=== PATIENT | female | born 1985 | race Caucasian/White ===

== ENCOUNTER 2017-09-27 12:23 | Day surgery (SDC) | payer BC ==
[2017-09-27] MEDS ORDERED: fentaNYL 250 MCG/5 ML SDV ONE (12:57)
[2017-09-27] MEDS ORDERED: Propofol 200 MG/20 ML SDV ONE (12:57)
[2017-09-27] MEDS ORDERED: Midazolam 1 MG/ML 2 ML SDV ONE (12:57)
[2017-09-27] MEDS ORDERED: Dexamethasone 4 MG/ML 5 ML MDV ONE (13:07)
[2017-09-27] MEDS ORDERED: Ondansetron 4 MG/2 ML SDV ONE (13:07)
[2017-09-27] MEDS ORDERED: Succinylcholine 200 MG/10 ML MDV ONE (13:13)
[2017-09-27] MEDS ORDERED: Rocuronium 10 MG/ML 10 ML Syringe ONE (13:13)
--- NOTE | 2017-09-27 13:50 | PCM.PREANE ---
Preanesthetic Assessment - Anesthesia/Transfusion/Family Hx Anesthesia History: Prior Anesthesia Without Reaction Family History of Anesthesia Reaction: No Transfusion History: No Prior Transfusion(s) Intubation History: Unknown - Review of Systems General: No Symptoms Pulmonary: No Symptoms Cardiovascular: No Symptoms Gastrointestinal: No Symptoms Neurological: No Symptoms Other: Reports: None - Physical Assessment Height: 1.69 m Weight: 131.088 kg ASA Class: 3 Mental Status: Alert & Oriented x3 Airway Class: Mallampati = 3 Dentition: Reports: Normal Dentition (small chip front upper tooth) Thyro-Mental Finger Breadths: 2 Mouth Opening Finger Breadths: 3 ROM/Head Extension: Full Lungs: Clear to Auscultation, Normal Respiratory Effort Cardiovascular: Regular Rate, Regular Rhythm - Allergies Allergies/Adverse Reactions: Allergies Allergy/AdvReac Type Severity Reaction Status Date / Time clindamycin Allergy Rash Verified 09/27/17 12:22 - Blood Blood Available: No - Anesthesia Plan Pre-Op Medication Ordered: None - Acknowledgements Anesthesia Type Planned: General Anesthesia Pt an Appropriate Candidate for the Planned Anesthesia: Yes Alternatives and Risks of Anesthesia Discussed w Pt/Guardian: Yes Pt/Guardian Understands and Agrees with Anesthesia Plan: Yes PreAnesthesia Questionnaire - Past Health History Medical/Surgical History: Denies Medical/Surgical History HEENT History: Reports: Other (See Below) Other HEENT History: wears glasses Cardiovascular History: Reports: Hypertension Respiratory History: Reports: Other (See Below) Other Respiratory History: possible sleep apnea, sleep study scheduled for October Gastrointestinal History: Reports: GERD Genitourinary History: Reports: None 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: Reports: Polycystic Ovaries, Musculoskeletal History: Reports: None Neurological History: Reports: None Psychiatric History: Reports: None Endocrine/Metabolic History: Reports: Obesity/BMI 30+ (BMI 45.9) Hematologic History: Reports: None Immunologic History: Reports: None Oncologic (Cancer) History: Reports: None Dermatologic History: Reports: Other (See Below) Other Dermatologic History: cellulitis, open wound to left thigh-MRSA - Past Surgical History Head Surgeries/Procedures: Reports: None GI Surgical History: Reports: Cholecystectomy, Hernia, Abdominal Female Surgical History: Reports: Section Dermatological Surgical History: Reports: Other (See Below) - SUBSTANCE USE Smoking Status *Q: Never Smoker Recreational Drug Use History: No - HOME MEDS Home Medications: Home Meds Citalopram [Citalopram HBr] 20 mg PO DAILY 09/27/17 [History] Hydrocodone/Acetaminophen [Hydrocodon-Acetaminophn 10-325] 1 tab PO ASDIRECTED PRN 09/27/17 [History] Potassium Chloride 20 meq PO DAILY 09/27/17 [History] Sulfamethoxazole/Trimethoprim [Sulfamethoxazole-Tmp Ds Tablet] 1 tab PO DAILY [History] Triamterene/Hydrochlorothiazid [Triamterene-HCTZ 37.5-25 MG] 1 tab PO DAILY 09/09 [History] - CURRENT (IN HOUSE) MEDS Current Meds: Current Medications Discontinued Medications Dexamethasone (Dexamethasone) Confirm Administered Dose 20 mg .ROUTE .STK-MED ONE Stop: 09/27/17 13:08 Fentanyl (Sublimaze) Confirm Administered Dose 250 mcg .ROUTE .STK-MED ONE Stop: 09/27/17 12:58 Lidocaine HCl (Xylocaine-Mpf 1%) Confirm Administered Dose 5 mls @ as directed .ROUTE .STK-MED ONE Stop: 09/27/17 13:08 Midazolam HCl (Versed 1 Mg/Ml) Confirm Administered Dose 2 mg .ROUTE .STK-MED ONE Stop: 09/27/17 12:58 Ondansetron HCl (Zofran) Confirm Administered Dose 4 mg .ROUTE .STK-MED ONE Stop: 09/27/17 13:08 Propofol (Diprivan 20 Ml) Confirm Administered Dose 200 mg .ROUTE .STK-MED ONE Stop: 09/27/17 12:58 Rocuronium [place] (Zemuron) Confirm Administered Dose 100 mg .ROUTE .STK-MED ONE Stop: 09/27/17 13:14 Succinylcholine Chloride (Quelicin) Confirm Administered Dose 200 mg .ROUTE .STK -MED ONE Stop: 09/27/17 13:14
[2017-09-27] MEDS ORDERED: ceFAZolin 1 GM Vial ONE (13:52)
[2017-09-27] MEDS ORDERED: Bupivacaine 0.5% 10 ML SDV ONE (13:53)
[2017-09-27] MEDS ORDERED: Lactated Ringers 1,000 ML IV SCH (14:00)
[2017-09-27] MEDS: fentaNYL 100 MCG/2 ML SDV IVPUSH PRN ×3 (15:18→15:28)
--- NOTE | 2017-09-27 15:29 | PCM.OPNOTE ---
- General Post-Op/Procedure Note Date of Surgery/Procedure: 09/27/17 Operative Procedure(s): Incision and drainage left anterior thigh abscess Findings: 4.5 deep x 4 cm across x 3 cm wide abscess in subcutaneous fat of anterior left thigh Pre Op Diagnosis: Left thigh abscess Post-Op Diagnosis: same Anesthesia Technique: General LMA Primary Surgeon: Kaitlin Samano Condition: Good
--- NOTE | 2017-09-27 15:40 | PCM.POSTAN ---
POST ANESTHESIA ASSESSMENT - MENTAL STATUS Mental Status: Alert, Oriented - RESPIRATORY Respiratory Status: Respiratory Rate WNL, Airway Patent, O2 Saturation Stable - CARDIOVASCULAR CV Status: Pulse Rate WNL, Blood Pressure Stable - GASTROINTESTINAL GI Status: No Symptoms - PAIN Pain Score: 4 - POST OP HYDRATION Hydration Status: Adequate & Stable
[2017-09-27] MEDS ORDERED: Acetaminophen/HYDROcodone 325-5 MG Tab PO PRN (16:19)
--- NOTE | 2017-09-27 16:19 | PCM48HPAN ---
Post Anesthesia Note - EVALUATION WITHIN 48HRS OF ANESTHETIC Vital Signs in Normal Range: Yes Patient Participated in Evaluation: Yes Respiratory Function Stable: Yes Airway Patent: Yes Cardiovascular Function Stable: Yes Hydration Status Stable: Yes Pain Control Satisfactory: Yes (Patient is having some pain but RN is getting a pill after she eats) Nausea and Vomiting Control Satisfactory: Yes Mental Status Recovered: Yes Resp Rate: 15
--- NOTE | 2017-09-27 17:41 | OR ---
SURGEON: SONALI PURCELL MD DATE OF PROCEDURE: 09/27/2017 PREOPERATIVE DIAGNOSIS: Left thigh abscess. POSTOPERATIVE DIAGNOSIS: Left thigh abscess. PROCEDURE PERFORMED: Incision and drainage of left thigh abscess. ANESTHESIA: General LMA. FLUIDS: See anesthesia record. ESTIMATED BLOOD LOSS: 10 mL. FINDINGS: 4.5 x 4 x 3 cm abscess in the subcutaneous fat of the anterior left thigh. COMPLICATIONS: None. INDICATIONS: The patient is a 32-year-old female, who presented to her primary care provider's office with a left anterior thigh abscess earlier this week. It was incised and drained at bedside. The cultures came back as MRSA. She came back in for wound check yesterday and was found to still be erythematous and actively draining purulence. The patient was seen by me in clinic today and had an ultrasound performed. The ultrasound showed an unopened cavity underneath the original incision and drainage site. The patient and I discussed the need for operative incision, drainage, and excisional debridement. I explained the procedure, expected perioperative course, and risks including bleeding, reinfection, or damage to surrounding structures. She verbalized understanding and wishes to proceed. PROCEDURE IN DETAIL: The patient was brought to the OR and placed on the OR table in supine position. A time-out was completed verifying the patient's name, age, date of , allergies, and procedure to be performed. General LMA anesthesia was induced. The left upper leg was prepped and draped in usual standard fashion. I inspected the previous wound. The original wound measured 2 x 1 cm in size. There was an area of edematous thickened tissue measuring approximately 4 cm around this site. I anesthetized the area with 0.5% Marcaine plain. An elliptical incision was made over the over the reddened area to include the previous opening, this measured 4 x 1 cm in size. I used a 15 blade to remove this from the underlying subcutaneous fat. Once I had unroofed the area, I explored it with palpation. I was able to break into an underlying cavity under the original wound. This was filled with purulent appearing material. I bluntly debrided this with my finger and irrigated out the cavity. I then measured the wound. It was 4.5 cm deep, 4 cm across, and 3 cm wide. Bleeding was controlled with electrocautery. The wound was then packed with a moistened 4 x 4 dressing and covered with dry 4 x 4 dressings, and ABD. This was secured in place using a micropore tape. Fluid from the wound was sent for anaerobic and aerobic cultures as well as Gram stain. The patient tolerated the procedure well and was extubated and taken to the PACU in stable condition. TITA MARSHALL /[id number]
[2017-09-27 17:48] VITALS: BP 123/65
== END 2017-09-27 17:30 | disposition home or self-care (01) ==
LOC: MW.SDS 12:23
PROVIDERS: ATTEND Surgery
DX: L02.416 Cutaneous abscess of left lower limb (principal); K21.9 Gastro-esophageal reflux disease without esophagitis; E66.9 Obesity, unspecified; Z79.2 Long term (current) use of antibiotics; Z88.1 Allergy status to other antibiotic agents
CPT/HCPCS: 10060; 81025; 87070; 87075; 87077; 87186; 87205; A9270; J0330; J0690; J1100; J2250; J2405; J3010; J3370; J7050; J7120; J2704

== ENCOUNTER 2020-04-21 08:07 | Emergency (ER) | payer BC ==
[2020-04-21] MEDS ORDERED: Ondansetron 4 MG/2 ML SDV IVPUSH ONE (08:23)
[2020-04-21] MEDS ORDERED: Morphine 4 MG/ML Syringe IVPUSH ONE ×2 (08:23→09:12)
[2020-04-21] MEDS ORDERED: Sodium Chloride 0.9% 2.5 ML Syringe FLUSH PRN (08:23)
[2020-04-21] MEDS ORDERED: Sodium Chloride 0.9% 10 ML Syringe FLUSH PRN (08:23)
--- NOTE | 2020-04-21 08:23 | EDM.PDOC ---
ED HPI GENERAL MEDICAL PROBLEM - General Chief Complaint: Abdominal Pain Stated Complaint: SHARP PAIN RT PELVIC ABD Time Seen by Provider: 04/21/20 08:11 Source of Information: Reports: Patient History Limitations: Reports: No Limitations - History of Present Illness INITIAL COMMENTS - FREE TEXT/NARRATIVE: 35-year-old female past medical history PCOS, morbid obesity presents for right lower quadrant/abdominal pain associated with nausea. Pain started a couple of days ago. Does not feel like her typical PCOS pain. Pain is described as sharp and stabbing. No associated urinary symptoms, vomiting. Denies fevers. No history of abdominal surgeries. right lower abdomen Pain Score (Numeric/FACES): 6 - Related Data Allergies Allergy/AdvReac Type Severity Reaction Status Date / Time clindamycin Allergy Rash Verified 04/21/20 08:14 Home Meds: Home Meds Cholecalciferol (Vitamin D3) [Vitamin D] units PO DAILY 04/21/20 [History] Citalopram [Citalopram HBr] 20 mg PO DAILY 04/21/20 [History] Spironolactone [Aldactone] mg PO DAILY 04/21/20 [History] hydrOXYzine HCL [hydrOXYzine] 20 mg PO DAILY 04/21/20 [History] metFORMIN [Glucophage XR] 1,000 mg PO DAILY 04/21/20 [History] Past Medical History - Past Health History Medical/Surgical History: Denies Medical/Surgical History HEENT History: Reports: Other (See Below) Other HEENT History: wears glasses Cardiovascular History: Reports: Hypertension Other Cardiovascular History: intermittent HTN, varicose veins (legs) Respiratory History: Reports: Other (See Below) Gastrointestinal History: Reports: Other (See Below) Other Gastrointestinal History: occasional heartburn Genitourinary History: Reports: None TRANSITION SPECIALIST History: Reports: Polycystic Ovaries, Musculoskeletal History: Reports: None Neurological History: Reports: None Psychiatric History: Reports: Anxiety Endocrine/Metabolic History: Reports: Obesity/BMI 30+ Hematologic History: Reports: None Immunologic History: Reports: None Oncologic (Cancer) History: Reports: None Dermatologic History: Reports: Other (See Below) Other Dermatologic History: hx of I&D to wound to left thigh-MRSA, presently has abscess to rt abd wall - Infectious Disease History Infectious Disease History: Reports: MRSA - Past Surgical History Head Surgeries/Procedures: Reports: None GI Surgical History: Reports: Cholecystectomy, Hernia, Abdominal Female Surgical History: Reports: Section Dermatological Surgical History: Reports: Other (See Below) Social & Family History - Family History Family Medical History: No Pertinent Family History - Tobacco Use Tobacco Use Status *Q: Never Tobacco User - Caffeine Use Caffeine Use: Reports: Soda - Recreational Drug Use Recreational Drug Use: No ED ROS GENERAL - Review of Systems Review Of Systems: Comprehensive ROS is negative, except as noted in HPI. ED EXAM, GENERAL - Physical Exam Exam: See Below Exam Limited By: No Limitations General Appearance: Alert, WD/WN, No Apparent Distress Nose: Normal Inspection Throat/Mouth: Normal Voice, No Airway Compromise Head: Atraumatic, Normocephalic Neck: Normal Inspection Respiratory/Chest: No Respiratory Distress, Lungs Clear, Normal Breath Sounds, No Accessory Muscle Use Cardiovascular: Normal Peripheral Pulses, Regular Rate, Rhythm, Tachycardia GI/Abdominal: Soft, No Distention, No Mass, Other (obese, RLQ TTP w/ voluntary guarding) Extremities: Normal Inspection Neurological: Alert Psychiatric: Normal Affect, Normal Mood Skin Exam: Warm, Dry, Intact, Normal Color Course - Vital Signs Last Recorded V/S: Last Vital Signs Temp 97.6 F 04/21/20 08:17 Pulse 74 04/21/20 09:17 Resp 18 04/21/20 09:17 BP 132/89 04/21/20 09:17 Pulse Ox 95 04/21/20 09:17 - Orders/Labs/Meds Orders: Active Orders 24 hr Category Date Time Status Sodium Chloride 0.9% [Saline Flush] Med 04/21/20 08:23 Active 10 ml FLUSH ASDIRECTED PRN Sodium Chloride 0.9% [Saline Flush] Med 04/21/20 08:23 Active 2.5 ml FLUSH ASDIRECTED PRN Saline Lock Insert [OM.PC] Stat Oth 04/21/20 08:23 Ordered Medication Orders Sodium Chloride (Saline Flush) 10 ml FLUSH ASDIRECTED PRN PRN Reason: Keep Vein Open Last Admin: 04/21/20 08:29 Dose: 10 ml Documented by: MIGUEL Sodium Chloride (Saline Flush) 2.5 ml FLUSH ASDIRECTED PRN PRN Reason: Keep Vein Open Last Admin: 04/21/20 08:29 Dose: 2.5 ml Documented by: MIGUEL Labs: Laboratory Tests 04/21/20 04/21/20 04/21/20 Range/Units 08:23 08:23 08:23 WBC 10.34 (4.0-11.0) K/uL RBC 5.62 (4.30-5.90) M/uL Hgb 15.5 (12.0-16.0) g/dL Hct 45.4 (36.0-46.0) % MCV 80.8 (80.0-98.0) fL MCH 27.6 (27.0-32.0) pg MCHC 34.1 (31.0-37.0) g/dL RDW Std Deviation 39.0 (28.0-62.0) fl RDW Coeff of [place]annon 13 (11.0-15.0) % Plt Count 258 (150-400) K/uL MPV 10.70 (7.40-12.00) fL Neut % (Auto) 64.9 (48.0-80.0) % Lymph % (Auto) 27.9 (16.0-40.0) % [place] % (Auto) 5.8 (0.0-15.0) % Eos % (Auto) 1.2 (0.0-7.0) % Baso % (Auto) 0.2 (0.0-1.5) % Neut # (Auto) 6.7 H (1.4-5.7) K/uL Lymph # (Auto) 2.9 H (0.6-2.4) K/uL [place] # (Auto) 0.6 (0.0-0.8) K/uL Eos # (Auto) 0.1 (0.0-0.7) K/uL Baso # (Auto) 0.0 (0.0-0.1) K/uL Nucleated RBC % 0.0 /100WBC Nucleated RBCs # 0 K/uL Lactate 1.8 (0.20-2.00) mmol/L Sodium 138 (136-145) mmol/L Potassium 3.9 (3.5-5.1) mmol/L Chloride 105 (98-107) mmol/L Carbon Dioxide 23.9 (21.0-32.0) mmol/L BUN 13 (7.0-18.0) mg/dL Creatinine 0.9 (0.6-1.0) mg/dL Est Cr Clr Drug Dosing 82.45 mL/min Estimated GFR (MDRD) > 60.0 ml/min Glucose 127 H (74-106) mg/dL Calcium 9.1 (8.5-10.1) mg/dL Total Bilirubin 0.6 (0.2-1.0) mg/dL AST 22 (15-37) IU/L ALT 57 (14-63) IU/L Alkaline Phosphatase 67 (46-116) U/L Total Protein 7.9 (6.4-8.2) g/dL Albumin 4.0 (3.4-5.0) g/dL Globulin 3.9 (2.6-4.0) g/dL Albumin/Globulin Ratio 1.0 (0.9-1.6) Lipase 108 (73-393) U/L Urine Color Urine Appearance Urine pH (5.0-8.0) Ur Specific [place] (1.001-1.035) Urine Protein (NEGATIVE) mg/dL Urine Glucose (UA) (NEGATIVE) mg/dL Urine Ketones (NEGATIVE) mg/dL Urine Occult Blood (NEGATIVE) Urine Nitrite (NEGATIVE) Urine Bilirubin (NEGATIVE) Urine Urobilinogen (<2.0) EU/dL Ur Leukocyte Esterase (NEGATIVE) Urine HCG, Qual (NEGATIVE) 04/21/20 04/21/20 Range/Units 08:23 08:23 WBC (4.0-11.0) K/uL RBC (4.30-5.90) M/uL Hgb (12.0-16.0) g/dL Hct (36.0-46.0) % MCV (80.0-98.0) fL MCH (27.0-32.0) pg MCHC (31.0-37.0) g/dL RDW Std Deviation (28.0-62.0) fl RDW Coeff of Brannon (11.0-15.0) % Plt Count (150-400) K/uL MPV (7.40-12.00) fL Neut % (Auto) (48.0-80.0) % Lymph % (Auto) (16.0-40.0) % [place] % (Auto) (0.0-15.0) % Eos % (Auto) (0.0-7.0) % Baso % (Auto) (0.0-1.5) % Neut # (Auto) (1.4-5.7) K/uL Lymph # (Auto) (0.6-2.4) K/uL [place] # (Auto) (0.0-0.8) K/uL Eos # (Auto) (0.0-0.7) K/uL Baso # (Auto) (0.0-0.1) K/uL Nucleated RBC % /100WBC Nucleated RBCs # K/uL Lactate (0.20-2.00) mmol/L Sodium (136-145) mmol/L Potassium (3.5-5.1) mmol/L Chloride (98-107) mmol/L Carbon Dioxide (21.0-32.0) mmol/L BUN (7.0-18.0) mg/dL Creatinine (0.6-1.0) mg/dL Est Cr Clr Drug Dosing mL/min Estimated GFR (MDRD) ml/min Glucose (74-106) mg/dL Calcium (8.5-10.1) mg/dL Total Bilirubin (0.2-1.0) mg/dL AST (15-37) IU/L ALT (14-63) IU/L Alkaline Phosphatase (46-116) U/L Total Protein (6.4-8.2) g/dL Albumin (3.4-5.0) g/dL Globulin (2.6-4.0) g/dL Albumin/Globulin Ratio (0.9-1.6) Lipase (73-393) U/L Urine Color YELLOW Urine Appearance CLEAR Urine pH 6.0 (5.0-8.0) Ur Specific [place] 1.020 (1.001-1.035) Urine Protein NEGATIVE (NEGATIVE) mg/dL Urine Glucose (UA) NEGATIVE (NEGATIVE) mg/dL Urine Ketones NEGATIVE (NEGATIVE) mg/dL Urine Occult Blood NEGATIVE (NEGATIVE) Urine Nitrite NEGATIVE (NEGATIVE) Urine Bilirubin NEGATIVE (NEGATIVE) Urine Urobilinogen 0.2 (<2.0) EU/dL Ur Leukocyte Esterase NEGATIVE (NEGATIVE) Urine HCG, Qual NEGATIVE (NEGATIVE) Meds: Medications Generic Name Dose Route Start Last Admin Trade Name Freq PRN Reason Stop Dose Admin Sodium Chloride 10 ml 04/21/20 08:23 04/21/20 08:29 Saline Flush FLUSH 10 ml ASDIRECTED PRN Administration Keep Vein Open Sodium Chloride 2.5 ml 04/21/20 08:23 04/21/20 08:29 Saline Flush FLUSH 2.5 ml ASDIRECTED PRN Administration Keep Vein Open Discontinued Medications Generic Name Dose Route Start Last Admin Trade Name Cornelioq PRN Reason Stop Dose Admin Iopamidol 100 ml 04/21/20 09:54 04/21/20 09:54 Isovue Multipack-370 (76%) IVPUSH 04/21/20 09:55 100 ml ONETIME ONE Administration Morphine Sulfate 4 mg 04/21/20 08:23 04/21/20 08:29 Morphine IVPUSH 04/21/20 08:24 4 mg ONETIME ONE Administration Morphine Sulfate 4 mg 04/21/20 09:12 04/21/20 09:16 Morphine IVPUSH 04/21/20 09:13 4 mg ONETIME ONE Administration Ondansetron HCl 4 mg 04/21/20 08:23 04/21/20 08:29 Zofran IVPUSH 04/21/20 08:24 4 mg ONETIME ONE Administration - Re-Assessments/Exams Free Text/Narrative Re-Assessment/Exam: 04/21/20 11:03 Labs are grossly unremarkable. Pelvic ultrasound is grossly unremarkable. CT imaging reveals trace amount of pelvic free fluid. Will discharge with TRANSITION SPECIALIST follow-up, return precautions discussed. Departure - Departure Time of Disposition: 11:04 Disposition: Home, Self-Care 01 Condition: Good Clinical Impression: Ovarian cyst Qualifiers: Laterality: right Qualified Code(s): N83.201 - Unspecified ovarian cyst, right side - Discharge Information Instructions: Ovarian Cyst, [id number] Referrals: Reed Arriaga MD [Primary Care Provider] - Forms: ED Department Discharge Additional Instructions: Your emergency department work-up is remarkable for a small ovarian cyst with some free fluid in your pelvis which likely represents a cyst that recently burst. This is likely the cause of your pain. There is no evidence of ovarian torsion (when the ovary twisted on itself and loses blood flow) or appendicitis. There is no evidence of infection. I will discharge you with a short course of pain medicine. This should resolve on its own, but you are encouraged to follo w-up with an TRANSITION SPECIALIST particularly because of your past history of PCOS. If the pain becomes severe you are encouraged to come back to the emergency department for reassessment. OBGYN: [facility] [address] [place] [address] [facility] [address] [place] [phone] The following information is given to patients seen in the emergency department who are being discharged to home. This information is to outline your options for follow-up care. We provide all patients seen in our emergency department with a follow-up referral. The need for follow-up, as well as the timing and circumstances, are variable depending upon the specifics of your emergency department visit. If you don't have a primary care physician on staff, we will provide you with a referral. We always advise you to contact your personal physician following an emergency department visit to inform them of the circumstance of the visit and for follow-up with them and/or the need for any referrals to a consulting specialist. The emergency department will also refer you to a specialist when appropriate. This referral assures that you have the opportunity for follow-up care with a specialist. All of these measure are taken in an effort to provide you with optimal care, which includes your follow-up. Under all circumstances we always encourage you to contact your private physician who remains a resource for coordinating your care. When calling for follow-up care, please make the office aware that this follow-up is from your recent emergency room visit. If for any reason you are refused follow-up, please contact the [facility] Emergency Department at and asked to speak to the emergency department charge nurse. Please follow up with your primary care physician. If you do not have a primary care physician, see below: [facility] [address] [place] [address] [facility] [address] [place] [id number] [facility] [address] [place] [id number] Sepsis Event Note (ED) - Evaluation Sepsis Screening Result: No Definite Risk - Focused Exam Vital Signs: Vital Signs Temp Pulse Resp BP Pulse Ox 04/21/20 09:17 74 18 132/89 95 04/21/20 08:17 97.6 F 112 H 18 151/110 H 96 - My Orders Last 24 Hours: My Active Orders 04/21/20 08:23 Sodium Chloride 0.9% [Saline Flush] 10 ml FLUSH ASDIRECTED PRN Sodium Chloride 0.9% [Saline Flush] 2.5 ml FLUSH ASDIRECTED PRN Saline Lock Insert [OM.PC] Stat - Assessment/Plan Last 24 Hours: My Active Orders 04/21/20 08:23 Sodium Chloride 0.9% [Saline Flush] 10 ml FLUSH ASDIRECTED PRN Sodium Chloride 0.9% [Saline Flush] 2.5 ml FLUSH ASDIRECTED PRN Saline Lock Insert [OM.PC] Stat
[2020-04-21 09:19] VITALS: PULSE 74
--- NOTE | 2020-04-21 09:24 | US ---
CLINICAL HISTORY: Sharp pelvic pain history of PCOS TECHNIQUE: Real time, sterling scale images were acquired of the pelvis using a transabdominal and transvaginal approach. Color Doppler analysis was performed of the ovaries. FINDINGS: Uterus measures 7.6 x 5.8 x 3.9 cm uterus is anteverted. Endometrial stripe measures 1 cm. Fundal 1.5 by 1.2 cm fibroid. The ovaries demonstrate normal follicular development. The left ovary measures 2.9 x 3.1 x 1.2 in size and the right ovary measures 3.4 x 3.5 x 2.5 . The ovaries demonstrate normal arterial and venous blood flow on color Doppler analysis. There are no suspicious fluid collections within the cul-de-sac. IMPRESSION: 1. Unremarkable pelvic ultrasound. Small fundal fibroid measuring 1.5 x 1.2 cm. 2. Normal appearance to both ovaries. Normal blood flow to both ovaries. Dictated by Savannah Garcia MD @ Apr 21 2020 9:20AM Signed by Dr. Savannah Garcia @ Apr 21 2020 9:22AM
[2020-04-21 09:25] LABS: BLOOD UREA NITROGEN,BUN 13 mg/dL (7.0-18.0); CARBON DIOXIDE,CO2 23.9 mmol/L (21.0-32.0); CHLORIDE,CL 105 mmol/L (98-107); GLUCOSE RANDOM 127 mg/dL (74-106); LIPASE 108 U/L (73-393); POTASSIUM,K 3.9 mmol/L (3.5-5.1); SODIUM,NA 138 mmol/L (136-145)
[2020-04-21] MEDS ORDERED: Iopamidol 755 MG/ML 500 ML Multipack Bottle IVPUSH ONE (09:54)
--- NOTE | 2020-04-21 10:37 | CT ---
Indication: Right lower quadrant pain PCOS Technique: Contrast enhanced CT abdomen and pelvis 100 mL Isovue 370 Comparison: No comparison Findings: Heart size is normal no pericardial effusion. Lung bases are clear. Spleen adrenal glands pancreas is unremarkable cholecystectomy. Liver is unremarkable. No abdominal aortic aneurysm. Bowel is unremarkable no obstruction. Normal appendix. Rim enhancing lesion in the right ovary likely reflecting corpus luteum cyst. Trace amount of fluid in the pelvis. Urinary bladder appears unremarkable. No suspicious bony lesions. Impression: 1. Normal appendix. No acute findings in the abdomen or pelvis. 2. Rim enhancing lesion right ovary probably reflects a corpus luteum cyst. Trace amount of fluid in the pelvis. Please note that all CT scans at this facility use dose modulation, iterative reconstruction, and/or weight-based dosing when appropriate to reduce radiation dose to as low as reasonably achievable. Dictated by Savannah Garcia MD @ Apr 21 2020 10:29AM Signed by Dr. Savannah Garcia @ Apr 21 2020 10:35AM
[2020-04-21 11:49] VITALS: BP 127/68
== END 2020-04-21 11:33 | disposition home or self-care (01) ==
LOC: MW.ED 08:07
DX: N83.201 Unspecified ovarian cyst, right side (principal); E66.01 Morbid (severe) obesity due to excess calories; Z68.43 Body mass index [BMI] 50.0-59.9, adult; Z88.1 Allergy status to other antibiotic agents; Z79.899 Other long term (current) drug therapy; Z79.84 Long term (current) use of oral hypoglycemic drugs
CPT/HCPCS: 36415; 74177; 76856; 80053; 81003; 81025; 83605; 83690; 85025; 96374; 96375; 96376; 99284; J2270; J2405; Q9967

== ENCOUNTER 2021-01-22 10:47 | Emergency (ER) | payer BC ==
--- NOTE | 2021-01-22 11:05 | EDM.PDOC ---
ED HPI GENERAL MEDICAL PROBLEM - General Chief Complaint: Lower Extremity Injury/Pain Stated Complaint: RT FOOT PAIN Time Seen by Provider: 01/22/21 10:50 Source of Information: Reports: Patient History Limitations: Reports: No Limitations - History of Present Illness INITIAL COMMENTS - FREE TEXT/NARRATIVE: HISTORY AND PHYSICAL: History of present illness: Patient is a 35-year-old female who presents emergency room today with concern of left foot injury that occurred yesterday afternoon. Patient states that she was playing with her son in the front yard. Patient states that they were kicking around a golf ball [id number] to each other. Patient states that she had stepped on the golf ball with her left foot and the golf ball caused her to fall. Patient states that she twisted and landed on her right foot. Patient states that she did not hit her head or lose consciousness. Patient states that since then, she has been able to walk but does have pain of her right outer foot when she does. Patient denies fever, chills, chest pain, shortness of breath, or cough. Denies headache, neck stiff ness, change in vision, syncope, or near syncope. Denies nausea, vomiting, abdominal pain, diarrhea, constipation, or dysuria. Has not noted any blood in urine or stool. Patient has been eating and drinking appropriately. Review of systems: As per history of present illness and below otherwise all systems reviewed and negative. Past medical history: As per history of present illness and as reviewed below otherwise noncontributory. Surgical history: As per history of present illness and as reviewed below otherwise noncontributory. Social history: See social history for further information Family history: As per history of present illness and as reviewed below otherwise noncontributory. Physical exam: General: Patient is alert, oriented, and in no acute distress. Patient sitting comfortably on exam table. Vitals stable and reviewed by me. HEENT: Atraumatic, normocephalic, pupils equal and reactive bilaterally, negative for conjunctival pallor or scleral icterus, mucous membranes moist, throat clear, neck supple, nontender, trachea midline. No drooling or trismus noted. No meningeal signs. No hot potato voice noted. Lungs: Clear to auscultation, breath sounds equal bilaterally, chest nontender. Heart: S1S2, regular rate and rhythm without overt murmur Abdomen: Soft, nondistended, nontender. Negative for masses or hepatosplenomegaly. Negative for costovertebral tenderness. Pelvis: Stable nontender. Genitourinary: Deferred. Rectal: Deferred. Skin: Intact, warm, dry. No lesions or rashes noted. Extremities: Patient does have mild ecchymosis noted to the lateral right foot with pain to palpation of this area. Patient does have full range of motion of the complete right lower extremity without deficit. Dorsalis pedis and posterior tibial pulse grossly intact of the right lower extremity with capillary refill less than 2 seconds. Intact sensation to light and deep touch of the right lower extremity. All compartments are soft. Otherwise, atraumatic, negative for cords or calf pain. Neurovascular unremarkable. Neuro: Awake, alert, oriented. Cranial nerves II through XII unremarkable. Cerebellum unremarkable. Motor and sensory unremarkable throughout. Exam nonfocal. Medical Decision Making: Signs and symptoms that would prompt return to the ED thoroughly discussed with patient. Discussed the importance for follow up with a primary care provider. Voices understanding and is agreeable to plan of care. Denies any further questions or concerns at this time. Diagnostics: Foot XR RT Therapeutics: None Prescription: None Impression: Right foot injury Plan: 1. Rest, ice, elevate the affected extremity. You can apply ice 15 minutes on, 15 minutes off. 2. Tylenol and/or Ibuprofen as directed for pain management or discomfort. 3. Follow up with the primary care provider as discussed. Return to the ED as needed and as discussed. Definitive disposition and diagnosis as appropriate pending reevaluation and review of above. right foot Pain Score (Numeric/FACES): 5 - Related Data Allergies Allergy/AdvReac Type Severity Reaction Status Date / Time clindamycin Allergy Rash Verified 01/22/21 10:55 Home Meds: Home Meds Citalopram [Citalopram HBr] 20 mg PO DAILY 04/21/20 [History] Spironolactone [Aldactone] mg PO DAILY 04/21/20 [History] metFORMIN [Glucophage XR] 1,000 mg PO DAILY 04/21/20 [History] Control Pills 1 tab PO DAILY 01/22/21 [History] Past Medical History - Past Health History Medical/Surgical History: Denies Medical/Surgical History HEENT History: Reports: Other (See Below) Other HEENT History: wears glasses Cardiovascular History: Reports: Hypertension Other Cardiovascular History: intermittent HTN, varicose veins (legs) Respiratory History: Reports: None Gastrointestinal History: Reports: Other (See Below) Other Gastrointestinal History: occasional heartburn Genitourinary History: Reports: None RN NEUROLOGY History: Reports: Polycystic Ovaries, Musculoskeletal History: Reports: None Neurological History: Reports: None Psychiatric History: Reports: Anxiety Endocrine/Metabolic History: Reports: Obesity/BMI 30+ 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 Hematologic History: Reports: None Immunologic History: Reports: None Oncologic (Cancer) History: Reports: None Dermatologic History: Reports: Other (See Below) Other Dermatologic History: hx of I&D to wound to left thigh-MRSA, presently has abscess to rt abd wall - Infectious Disease History Infectious Disease History: Reports: MRSA - Past Surgical History Head Surgeries/Procedures: Reports: None GI Surgical History: Reports: Cholecystectomy, Hernia, Abdominal Female Surgical History: Reports: Section Dermatological Surgical History: Reports: Other (See Below) Social & Family History - Family History Family Medical History: No Pertinent Family History - Caffeine Use Caffeine Use: Reports: Energy Drinks, Soda - Recreational Drug Use Recreational Drug Use: No Review of Systems - Review of Systems Review Of Systems: Comprehensive ROS is negative, except as noted in HPI. ED EXAM, GENERAL - Physical Exam Exam: See Below (see dictation) Course - Vital Signs Last Recorded V/S: Last Vital Signs Temp 96.8 F L 01/22/21 10:55 Pulse 75 01/22/21 12:13 Resp 18 01/22/21 12:13 BP 142/101 H 01/22/21 12:13 Pulse Ox 97 01/22/21 12:13 Departure - Departure Time of Disposition: 12:42 Disposition: Home, Self-Care 01 Clinical Impression: Foot injury Qualifiers: Encounter type: initial encounter Laterality: right Qualified Code(s): S99.921A - Unspecified injury of right foot, initial encounter - Discharge Information Referrals: Reed Arriaga MD [Primary Care Provider] - Forms: ED Department Discharge Additional Instructions: The following information is given to patients seen in the emergency department who are being discharged to home. This information is to outline your options for follow-up care. We provide all patients seen in our emergency department with a follow-up referral. The need for follow-up, as well as the timing and circumstances, are variable depending upon the specifics of your emergency department visit. If you don't have a primary care physician on staff, we will provide you with a referral. We always advise you to contact your personal physician following an emergency department visit to inform them of the circumstance of the visit and for follow-up with them and/or the need for any referrals to a consulting s pecialist. The emergency department will also refer you to a specialist when appropriate. This referral assures that you have the opportunity for follow-up care with a specialist. All of these measure are taken in an effort to provide you with optimal care, which includes your follow-up. Under all circumstances we always encourage you to contact your private physician who remains a resource for coordinating your care. When calling for follow-up care, please make the office aware that this follow-up is from your recent emergency room visit. If for any reason you are refused follow-up, please contact the [facility] Emergency Department at and asked to speak to the emergency department charge nurse. [facility] [address] [place] [address] [place] [address] 1. Rest, ice, elevate the affected extremity. You can apply ice 15 minutes on, 15 minutes off. 2. Tylenol and/or Ibuprofen as directed for pain management or discomfort. 3. Follow up with the primary care provider as discussed. Return to the ED as needed and as discussed. Sepsis Event Note (ED) - Evaluation Sepsis Screening Result: No Definite Risk - Focused Exam Vital Signs: Vital Signs Temp Pulse Resp BP Pulse Ox 01/22/21 12:13 75 18 142/101 H 97 01/22/21 10:55 96.8 F L 86 18 148/97 H 97
--- NOTE | 2021-01-22 12:40 | CR ---
Indication: Injury Technique: Two views right foot Comparison: No comparison Findings: Normal alignment. No fractures or acute osseous abnormalities. Calcaneal spurs. Soft tissue swelling. : : Dictated by Savannah Garcia MD @ 01/22/2021 12:39:29 PM (Electronically Signed)
[2021-01-22 13:05] VITALS: BP 130/93; PULSE 76
== END 2021-01-22 13:00 | disposition home or self-care (01) ==
LOC: MW.ED 10:47
DX: S90.31XA Contusion of right foot, initial encounter (principal); I10 Essential (primary) hypertension; E66.9 Obesity, unspecified; Z68.42 Body mass index [BMI] 45.0-49.9, adult; Z88.1 Allergy status to other antibiotic agents; W21.04XA Struck by golf ball, initial encounter
CPT/HCPCS: 73620-26-RT; 73620-RT; 99283-25

== ENCOUNTER 2022-07-12 18:28 | Emergency (ER) | payer BC ==
[2022-07-12] MEDS ORDERED: Diphtheria,Pertussis(Acell),Tetanus Vaccine 0.5 ML Syringe IM ONE (19:54)
[2022-07-12] MEDS ORDERED: Lidocaine 1% 5 ML VIAL INJECT ONE (19:56)
[2022-07-12 22:40] VITALS: BP 144/96; PULSE 86
== END 2022-07-12 22:45 | disposition home or self-care (01) ==
LOC: MW.ED 18:28
DX: S61.216A Laceration without foreign body of right little finger without damage to nail, initial encounter (principal); I10 Essential (primary) hypertension; E66.9 Obesity, unspecified; Z23 Encounter for immunization; Z88.1 Allergy status to other antibiotic agents; Z68.42 Body mass index [BMI] 45.0-49.9, adult; W45.8XXA Other foreign body or object entering through skin, initial encounter
CPT/HCPCS: 12001; 90471; 90715; 99282-25; 99283; J3490

== ENCOUNTER 2022-10-04 06:08 | Emergency (ER) | payer BC ==
[2022-10-04] MEDS ORDERED: Sodium Chloride 0.9% 2.5 ML Syringe FLUSH PRN (06:55)
[2022-10-04] MEDS ORDERED: Sodium Chloride 0.9% 10 ML Syringe FLUSH PRN (06:55)
[2022-10-04 07:43] LABS: BASOPHILS PERCENT AUTO 0.2 % (0.0-1.5); EOSINOPHILS PERCENT AUTO 0.4 % (0.0-7.0); HEMATOCRIT 42.7 % (36.0-46.0); HEMOGLOBIN 14.9 g/dL (12.0-16.0); LYMPHOCYTES ABSOLUTE AUTO 0.8 K/uL (0.6-2.4); LYMPHOCYTES PERCENT AUTO 8.7 % (16.0-40.0); MEAN CORPUSCULAR HEMOGLOBIN 28.3 pg (27.0-32.0); MEAN CORPUSCULAR HGB CONC 34.9 g/dL (31.0-37.0); MEAN CORPUSCULAR VOLUME 81.2 fL (80.0-98.0); MONOCYTES ABSOLUTE AUTO 0.7 K/uL (0.0-0.8); MONOCYTES PERCENT AUTO 7.3 % (0.0-15.0); NEUTROPHILS ABSOLUTE AUTO 7.9 K/uL (1.4-5.7); NEUTROPHILS PERCENT AUTO 83.4 % (48.0-80.0); NRBC ABSOLUTE 0 K/uL; PLATELET COUNT,PLT 251 K/uL (150-400); RED BLOOD CELL COUNT 5.26 M/uL (4.30-5.90)
[2022-10-04] MEDS ORDERED: Ketorolac 30 MG/ML SDV IVPUSH ONE (07:50)
[2022-10-04 08:12] LABS: A/G RATIO 1.1 (0.9-1.6); ALANINE AMINOTRANSFERASE,ALT 24 IU/L (14-63); ALBUMIN 3.8 g/dL (3.4-5.0); ALKALINE PHOSPHATASE 75 U/L (46-116); ASPARTATE AMNIOTRANSFERASE,AST 15 IU/L (15-37); BILIRUBIN TOTAL 1.2 mg/dL (0.2-1.0); BLOOD UREA NITROGEN,BUN 11 mg/dL (7.0-18.0); CALCIUM 8.8 mg/dL (8.5-10.1); CARBON DIOXIDE,CO2 27.3 mmol/L (21.0-32.0); CHLORIDE,CL 102 mmol/L (98-107); CREATININE 0.8 mg/dL (0.6-1.0); EST CRCL DRUG DOSING (CG) 94.54 mL/min; GLUCOSE RANDOM 139 mg/dL (74-106); LIPASE 89 U/L (73-393); PROTEIN TOTAL,TP 7.2 g/dL (6.4-8.2); SODIUM,NA 138 mmol/L (136-145)
[2022-10-04 08:13] LABS: ESTIMATED GFR 98 mL/min (>60)
[2022-10-04 09:29] LABS: APPEARANCE,URINE SLT CLOUDY; BILIRUBIN,URINE NEGATIVE (NEGATIVE); COLOR,URINE YELLOW; GLUCOSE,URINE NEGATIVE (NEGATIVE); KETONES,URINE NEGATIVE (NEGATIVE); LEUKOCYTE ESTERASE,URINE TRACE (NEGATIVE); NITRITE,URINE NEGATIVE (NEGATIVE); OCCULT BLOOD,URINE NEGATIVE (NEGATIVE); PROTEIN,URINE NEGATIVE (NEGATIVE); UROBILINOGEN,URINE 0.2 EU/dL (<2.0)
[2022-10-04] MEDS ORDERED: Iopamidol 755 Mg/ML 100 ML Bottle IVPUSH ONE (09:40)
[2022-10-04 09:48] LABS: BACTERIA,URINE OCCASIONAL (NEGATIVE); EPITHELIAL CELLS,URINE MODERATE (NONE-FEW); RBC,URINE NONE SEEN (0-2/HPF); WBC,URINE 0-5 (0-5/HPF)
[2022-10-04 14:52] VITALS: BP 131/86; PULSE 79
== END 2022-10-04 14:52 | disposition home or self-care (01) ==
LOC: MW.ED 06:08
DX: R07.81 Pleurodynia (principal); I10 Essential (primary) hypertension; E66.9 Obesity, unspecified; Z68.41 Body mass index [BMI] 40.0-44.9, adult; Z88.1 Allergy status to other antibiotic agents; Z79.899 Other long term (current) drug therapy
CPT/HCPCS: 36415; 71045; 71275; 76705; 80053; 81001; 81025; 83690; 84484; 84703; 85025; 85379; 93005; 93971; 96374; 99285; J1885; J3490; Q9967; 93010; 99284